=== PATIENT | female | born 1995 | race Caucasian/White ===

== ENCOUNTER 2017-12-04 20:28 | Emergency (ER) | payer SELFPAY ==
[2017-12-04 21:05] VITALS: BP 135/90
[2017-12-04 21:56] LABS: Basophils % (Auto) 0.4 % (0.0-1.8); Eosinophils # (Auto) 0.3 K/mm3 (0.0-0.4); Hemoglobin 14.3 gm/dl (10.1-14.3); Lymphocytes # (Auto) 1.4 K/mm3 (1.2-5.4); Lymphocytes % (Auto) 15.8 % (13.4-35.0); Mean Corpuscular HGB Conc 35 % (30-34); Mean Corpuscular Hemoglobin 30 pg (28-32); Mean Corpuscular Volume 87 fl (79-97); Monocytes # (Auto) 0.3 K/mm3 (0.0-0.8); Monocytes % (Auto) 3.2 % (0.0-7.3); Platelet Count 364 K/mm3 (140-440); Red Blood Count 4.71 M/mm3 (3.65-5.03); Red Cell Distribution Width 13.3 % (13.2-15.2)
[2017-12-04 22:17] LABS: Alanine Aminotransferase 13 units/L (7-56); Albumin 4.2 g/dL (3.9-5); BUN/Creatinine Ratio 10; Blood Urea Nitrogen 6 mg/dL (7-17); Calcium 9.2 mg/dL (8.4-10.2); Hemolysis Index 4
[2017-12-04 23:18] LABS: Bilirubin,Urine NEG (Negative); Blood,Urine NEG (Negative); Color,Urine Straw (Yellow); Mucus,Urine FEW /HPF; Protein,Urine <15 mg/dL mg/dL (Negative); RBC,Urine < 1.0 /HPF (0.0-6.0); Urobilinogen,Urine < 2.0 mg/dL (<2.0)
== END 2017-12-05 09:10 | disposition left against medical advice (07) ==
LOC: ED 20:28
DX: R10.9 Unspecified abdominal pain (principal); R11.0 Nausea; Z53.21 Procedure and treatment not carried out due to patient leaving prior to being seen by health care provider
CPT/HCPCS: 36415; 80053; 81001; 85025

== ENCOUNTER 2017-12-07 20:59 | Emergency (ER) | payer OTHER ==
[2017-12-07 21:56] LABS: Basophils # (Auto) 0.1 K/mm3 (0.0-0.1); Basophils % (Auto) 0.6 % (0.0-1.8); Eosinophils # (Auto) 0.4 K/mm3 (0.0-0.4); Eosinophils % (Auto) 3.5 % (0.0-4.3); Hematocrit 42.6 % (30.3-42.9); Hemoglobin 14.3 gm/dl (10.1-14.3); Lymphocytes # (Auto) 1.8 K/mm3 (1.2-5.4); Mean Corpuscular HGB Conc 34 % (30-34); Mean Corpuscular Hemoglobin 30 pg (28-32); Mean Corpuscular Volume 88 fl (79-97); Monocytes # (Auto) 0.4 K/mm3 (0.0-0.8); Monocytes % (Auto) 3.5 % (0.0-7.3); Platelet Count 448 K/mm3 (140-440); Red Blood Count 4.83 M/mm3 (3.65-5.03); Red Cell Distribution Width 13.2 % (13.2-15.2)
[2017-12-07 22:09] LABS: HCG Qualitative,Urine Negative (Negative)
[2017-12-07 22:10] LABS: Alanine Aminotransferase 13 units/L (7-56); Albumin 4.6 g/dL (3.9-5); BUN/Creatinine Ratio 13; Bilirubin,Urine NEG (Negative); Blood Urea Nitrogen 9 mg/dL (7-17); Blood,Urine NEG (Negative); Calcium 9.6 mg/dL (8.4-10.2); Color,Urine Yellow (Yellow); Hemolysis Index 6; Mucus,Urine 1+ /HPF; Protein,Urine <15 mg/dL mg/dL (Negative); Urobilinogen,Urine < 2.0 mg/dL (<2.0)
[2017-12-07] MEDS ORDERED: ZOFRAN ODT PO ONE (22:33)
--- NOTE | 2017-12-08 06:38 | Emergency Department Report ---
ED Abdominal Pain HPI - General Chief Complaint: Abdominal Pain Stated Complaint: STOMACH PAIN Time Seen by Provider: 12/08/17 06:29 Source: patient Mode of arrival: Ambulatory Limitations: No Limitations - History of Present Illness Initial Comments: 22-year-old female complains of abdominal pain and vomiting a few days ago with the onset of diarrhea yesterday. The discomfort was in the epigastric region. There was no signs of any hematemesis or melena. Patient thinks that she might have a virus. She states that she's had no prior emergency department visits for the same or any previous abdominal surgery. No fever or chills. No back pain. No symptoms. MD Complaint: abdominal pain -: Gradual, days(s), week(s) Location: epigastric Radiation: none Migration to: no migration Severity: moderate Severity scale (0 -10): 0 Quality: aching Consistency: intermittent Improves With: nothing Worsens With: nothing Associated Symptoms: denies other symptoms, vomiting, diarrhea - Related Data Previous Rx's Medication Instructions Recorded Last Taken Type Promethazine [Phenergan] 25 mg PO Q6H PRN #12 tablet 03/30/13 Unknown Rx Sulfamethoxazole/Trimethoprim 1 each PO BID #10 tablet 12/08/17 Unknown Rx [Bactrim DS TAB] traMADol [Ultram] 50 mg PO Q6HR PRN #10 tablet 12/08/17 Unknown Rx Allergies Allergy/AdvReac Type Severity Reaction Status Date / Time No Known Allergies Allergy Unverified 03/29/13 22:19 ED Review of Systems ROS: Stated complaint: STOMACH PAIN Other details as noted in HPI Constitutional: denies: chills, fever Eyes: denies: eye pain, eye discharge, vision change ENT: denies: ear pain, throat pain Respiratory: denies: cough, shortness of breath, wheezing Cardiovascular: denies: chest pain, palpitations Endocrine: no symptoms reported Gastrointestinal: abdominal pain, nausea, vomiting, diarrhea Genitourinary: denies: urgency, dysuria, discharge Musculoskeletal: denies: back pain, joint swelling, arthralgia Skin: denies: rash, lesions Neurological: denies: headache, weakness, paresthesias Psychiatric: denies: anxiety, depression Hematological/Lymphatic: denies: easy bleeding, easy bruising ED Past Medical Hx - Past Medical History Previous Medical History?: No - Surgical History Past Surgical History?: No - Social History Smoking Status: Never Smoker Substance Use Type: None - Medications Home Medications: Home Medications Medication Instructions Recorded Confirmed Last Taken Type Promethazine [Phenergan] 25 mg PO Q6H PRN #12 tablet 03/30/13 Unknown Rx Sulfamethoxazole/Trimethoprim 1 each PO BID #10 tablet 12/08/17 Unknown Rx [Bactrim DS TAB] traMADol [Ultram] 50 mg PO Q6HR PRN #10 tablet 12/08/17 Unknown Rx ED Physical Exam - General Limitations: No Limitations General appearance: alert, in no apparent distress - Head Head exam: Present: atraumatic, normocephalic - Eye Eye exam: Present: normal appearance - ENT ENT exam: Present: mucous membranes moist - Neck Neck exam: Present: normal inspection - Respiratory Respiratory exam: Present: normal lung sounds bilaterally. Absent: respiratory distress - Cardiovascular Cardiovascular Exam: Present: regular rate, normal rhythm. Absent: systolic murmur, diastolic murmur, rubs, gallop - GI/Abdominal GI/Abdominal exam: Present: soft, normal bowel sounds. Absent: distended, tenderness, guarding, rebound, rigid, organomegaly, mass, bruit, pulsatile mass , hernia - Extremities Exam Extremities exam: Present: normal inspection - Back Exam Back exam: Present: normal inspection - Neurological Exam Neurological exam: Present: alert, oriented X3, CN II-XII intact. Absent: motor sensory deficit - Psychiatric Psychiatric exam: Present: normal affect, normal mood - Skin Skin exam: Present: warm, dry, intact, normal color. Absent: rash ED Course Vital Signs 12/07/17 12/08/17 12/08/17 21:36 04:09 04:15 Temperature 98.7 F 98.3 F Pulse Rate 90 90 Respiratory 17 16 Rate Blood Pressure 137/88 118/78 Blood Pressure 118/78 [Right] O2 Sat by Pulse 99 99 Oximetry 12/08/17 12/08/17 12/08/17 05:00 06:00 09:43 Temperature Pulse Rate 84 Respiratory 18 Rate Blood Pressure 108/73 99/63 Blood Pressure 92/65 [Right] O2 Sat by Pulse Oximetry - Reevaluation(s) Reevaluation #1: Patient did well in the emergency department. CT of her abdomen was normal. She did have moderate leukoesterase but no significant pyuria. I will treat her empirically with Bactrim and something for her abdominal discomfort. Urine culture will be sent. Follow-up is advised. Return criteria given. 12/08/17 10:37 ED Medical Decision Making - Lab Data Result diagrams: 12/07/17 21:48 12/07/17 21:48 Laboratory Results - last 24 hr 12/07/17 12/07/17 12/07/17 21:48 21:48 21:48 WBC 11.9 H RBC 4.83 Hgb 14.3 Hct 42.6 MCV 88 MCH 30 MCHC 34 RDW 13.2 Plt Count 448 H Lymph % (Auto) 15.0 [place] % (Auto) 3.5 Eos % (Auto) 3.5 Baso % (Auto) 0.6 Lymph # 1.8 [place] # 0.4 Eos # 0.4 Baso # 0.1 Seg Neutrophils % 77.4 H Seg Neutrophils # 9.2 H Sodium 139 Potassium 4.1 Chloride 97.8 L Carbon Dioxide 28 Anion Gap 17 BUN 9 Creatinine 0.7 Estimated GFR > 60 BUN/Creatinine Ratio 13 Glucose 95 Calcium 9.6 Total Bilirubin 0.80 AST 13 ALT 13 Alkaline Phosphatase 55 Total Protein 7.8 Albumin 4.6 Albumin/Globulin Ratio 1.4 Urine Color Yellow Urine Turbidity Clear Urine pH 5.0 Ur Specific [place] 1.023 Urine Protein <15 mg/dl Urine Glucose (UA) Neg Urine Ketones 20 Urine Blood Neg Urine Nitrite Neg Ur Reducing Substances Not Reportable Urine Bilirubin Neg Urine Ictotest Not Reportable Urine Urobilinogen < 2.0 Ur Leukocyte Esterase Mod Urine WBC (Auto) 2.0 Urine RBC (Auto) 2.0 U Epithel Cells (Auto) 3.0 Urine Mucus 1+ Urine HCG, Qual Negative Critical care attestation.: If time is entered above; I have spent that time in minutes in the direct care of this critically ill patient, excluding procedure time. ED Disposition Clinical Impression: Diarrhea Qualifiers: Diarrhea type: unspecified type Qualified Code(s): R19.7 - Diarrhea, unspecified Abdominal pain Qualifiers: Abdominal location: epigastric Qualified Code(s): R10.13 - Epigastric pain UTI (urinary tract infection) Qualifiers: Urinary tract infection type: site unspecified Hematuria presence: without hematuria Qualified Code(s): N39.0 - Urinary tract infection, site not specified Disposition: TO HOME OR SELFCARE Is pt being admited?: No Does the pt Need Aspirin: No Condition: Stable Instructions: Abdominal Pain (ED), Gastroenteritis (ED), Acute Diarrhea (ED), Urinary Tract Infection in Women (ED) Additional Instructions: Increase fluid. Light diet and advance. Rx as directed. Follow-up with a primary care physician. Return to the emergency department as directed any acute change or problem. Follow-up on your urine culture ready in 2-3 days. Prescriptions: Sulfamethoxazole/Trimethoprim [Bactrim DS TAB] 1 each PO BID #10 tablet traMADol [Ultram] 50 mg PO Q6HR PRN #10 tablet PRN Reason: Pain Referrals: PRIMARY CAREMD [Primary Care Provider] - 3-5 Days MARCIANO REYES MD [Staff Physician] - 3-5 Days [facility] [Provider Group] - 2-3 Days Time of Disposition: 10:40
[2017-12-08] MEDS ORDERED: NACL 0.9% 1000 ML 1,000 ML IV ONE (07:17)
--- NOTE | 2017-12-08 08:36 | Cat Scan Report ---
FINAL REPORT EXAM: CT ABDOMEN PELVIS W CON HISTORY: Epigastric pain. TECHNIQUE: Axial CT images of the abdomen and pelvis were obtained, following the administration of intravenous contrast. Delayed axial images and coronal and sagittal reformatted images were also obtained. No prior studies are available for comparison. FINDINGS: The liver, biliary tree, gallbladder, pancreas, spleen, and adrenal glands are unremarkable. There is left renal atrophy, with diffuse chronic irregular scarring and cortical thinning. There is associated compensatory hypertrophy of the right kidney. There is symmetric enhancement and contrast excretion from both kidneys, with no urinary tract obstruction. Evaluation of the bowel is limited due to lack of oral contrast. The proximal and distal portions of the stomach are collapsed throughout this exam, and underlying wall thickening cannot be evaluated. Residual stool is seen in the colon. There is no intestinal obstruction or free air. Of note, the appendix is normal. The abdominal aorta is normal in caliber. There is no pathologic abdominal or pelvic lymphadenopathy. There is low attenuation in the endometrium, likely physiologic changes. There are a follicular/cystic changes seen within both ovaries, within normal limits for patient's age. There is moderate posterior pelvic free fluid. A 1.3 cm ovoid calcification is seen in the right posterior pelvis, likely dystrophic mesenteric calcification or calcified lymph node. The urinary bladder is unremarkable. No discrete osseous abnormality is seen. The visualized lung bases are clear. IMPRESSION: 1. No intestinal obstruction or free air. Normal CT appearance of the appendix. 2. Collapsed stomach, and underlying wall thickening cannot be evaluated. 3. Moderate left renal atrophy, with diffuse chronic irregular scarring. No evidence of urinary tract obstruction. 4. Moderate posterior pelvic free fluid, which may be physiologic.
[2017-12-08 11:34] VITALS: BP 116/62
== END 2017-12-08 11:33 | disposition home or self-care (01) ==
LOC: ED 20:59
DX: N39.0 Urinary tract infection, site not specified (principal); R19.7 Diarrhea, unspecified; R10.13 Epigastric pain
CPT/HCPCS: 36415; 74177; 80053; 81001; 81025; 85025; 87086; 96360; 99284; J7030; Q9967